=== PATIENT | male | born 1985 | race American Indian/Alaskan Native ===

== ENCOUNTER 2017-04-07 15:50 | Emergency (ER) | payer SELFPAY ==
[2017-04-07 16:01] VITALS: BP 131/54
--- NOTE | 2017-04-07 17:25 | Emergency Department Report ---
Chief Complaint: Abdominal Pain Stated Complaint: ABD PAIN/BLOODY DIARRHEA - HPI History of Present Illness: 31 yo male with history of HIV unknown CD4 count. Had left lower quadrant pain and bloody mucous-like diarrhea. - Exam Vital Signs: Vital Signs 04/07/17 15:57 Temperature 98.2 F Pulse Rate 69 Respiratory 18 Rate Blood Pressure 131/54 O2 Sat by Pulse 99 Oximetry MSE screening note: Focused history and physical exam performed. Due to findings the following was ordered: ED Disposition for MSE Condition: Stable
[2017-04-07] MEDS ORDERED: NORCO 5/325 PO ONE (17:26)
[2017-04-07] MEDS ORDERED: ZOFRAN ODT PO ONE (17:26)
[2017-04-07 18:25] LABS: Basophils % (Auto) 0.2 % (0.0-1.8); Hematocrit 45.1 % (35.5-45.6); Hemoglobin 14.8 gm/dl (11.8-15.2); Lymphocytes # (Auto) 1.2 K/mm3 (1.2-5.4); Lymphocytes % (Auto) 17.6 % (13.4-35.0); Mean Corpuscular HGB Conc 33 % (32-34); Mean Corpuscular Hemoglobin 27 pg (28-32); Mean Corpuscular Volume 83 fl (84-94); Monocytes # (Auto) 0.6 K/mm3 (0.0-0.8); Monocytes % (Auto) 9.7 % (0.0-7.3); Platelet Count 213 K/mm3 (140-440); Red Blood Count 5.47 M/mm3 (3.65-5.03); Red Cell Distribution Width 14.5 % (13.2-15.2)
[2017-04-07 18:36] LABS: BUN/Creatinine Ratio 17; Blood Urea Nitrogen 15 mg/dL (9-20); Calcium 9.1 mg/dL (8.4-10.2); Hemolysis Index 5
--- NOTE | 2017-04-07 20:15 | Cat Scan Report ---
FINAL REPORT PROCEDURE: CT abdomen and pelvis without contrast. TECHNIQUE: Computerized axial tomography of the abdomen and pelvis was performed without intravenous contrast. This study is performed without intravascular contrast material and its sensitivity for abdominal and pelvic pathology, including neoplasms, inflammation, abscess, free fluid, thrombosis, arterial dissection and infarction, is reduced compared with a contrast enhanced study. HISTORY: left lower quadrant pain and bloody stool COMPARISON: No prior studies are available for comparison. FINDINGS: The lung bases are clear. There are no pleural effusions. The heart size is normal. The liver, pancreas and spleen are grossly normal. The gallbladder is present. The adrenal glands are not enlarged. Both kidneys appear normal in size and configuration. There is slightly increased attenuation involving several of the renal pyramids bilaterally. This suggests possible nephrocalcinosis. There is no hydronephrosis. The abdominal aorta has a normal caliber. There is no definite retroperitoneal adenopathy. The unopacified gastrointestinal tract is unremarkable. I believe there is a normal appendix present. The bladder is empty. The seminal vesicles and prostate are unremarkable. The regional skeleton appears intact. IMPRESSION: Nephrocalcinosis. Otherwise normal unenhanced studies of the abdomen and pelvis.
--- NOTE | 2017-04-07 20:57 | Emergency Department Report ---
ED Abdominal Pain HPI - General Chief Complaint: Abdominal Pain Stated Complaint: ABD PAIN/BLOODY DIARRHEA Time Seen by Provider: 04/07/17 20:40 Source: patient Mode of arrival: Ambulatory Limitations: No Limitations - History of Present Illness Initial Comments: This is a 31-year-old male nontoxic, well nourished in appearance, no acute signs of distress presents to the ED with c/o of left sided lower abdominal pain and bloody-mucus diarrhea x2 days. Patient describes pain as cramping with level of 8/10. Patient stated symptoms of abdominal cramping resolved after medical treatment in the Ed prior to my interview. Patient denies any nausea, vomiting, dysuria, polyuria, hematuria, chest pain, shortness of breathe, fever , chills, headache, stiff neck, numbness, tingling, back pain. Patient denies any allergies. PMH includes HIV. Patient denies knowing CD4 count and stated has not followed up with a primary care doctor. MD Complaint: abdominal pain -: days(s) (2) Location: [facility] Radiation: none Migration to: no migration Severity: mild Severity scale (0 -10): 8 Quality: cramping Consistency: now resolved Improves With: nothing Worsens With: nothing Associated Symptoms: denies other symptoms, diarrhea. denies: nausea, vomiting , fever, chills, constipation, dysuria, hematemesis, hematochezia, melena, hematuria, anorexia, syncope - Related Data Previous Rx's Medication Instructions Recorded Last Taken Type Ciprofloxacin HCl [Ciprofloxacin 500 mg PO Q12HR #20 tab 11/26/14 Unknown Rx TAB] Diclofenac Dr [Ana Munroe] 75 mg PO Q12H #14 tablet 11/26/14 Unknown Rx HYDROcodone/APAP 5-325 [[place] 1 each PO Q6HR PRN #12 tablet 11/26/14 Unknown Rx 5/325] Ciprofloxacin [Ciprofloxacin ORAL 500 mg PO Q12H #14 ml 04/07/17 Unknown Rx LIQ] metroNIDAZOLE [Flagyl] 500 mg PO Q12HR #14 tab 04/07/17 Unknown Rx Allergies Allergy/AdvReac Type Severity Reaction Status Date / Time No Known Allergies Allergy Verified 11/26/14 00:44 ED Review of Systems ROS: Stated complaint: ABD PAIN/BLOODY DIARRHEA Other details as noted in HPI Constitutional: denies: chills, fever Eyes: denies: eye pain, eye discharge, vision change ENT: denies: ear pain, throat pain Respiratory: denies: cough, shortness of breath, wheezing Cardiovascular: denies: chest pain, palpitations Endocrine: no symptoms reported Gastrointestinal: abdominal pain, diarrhea. denies: nausea Genitourinary: denies: urgency, dysuria Musculoskeletal: denies: back pain, joint swelling, arthralgia Skin: denies: rash, lesions Neurological: denies: headache, weakness, paresthesias Psychiatric: denies: anxiety, depression Hematological/Lymphatic: denies: easy bleeding, easy bruising ED Past Medical Hx - Past Medical History Previous Medical History?: Yes Hx HIV: Yes (no antivirals) - Surgical History Past Surgical History?: No - Social History Smoking Status: Current Some Day Smoker Substance Use Type: Marijuana - Medications Home Medications: Home Medications Medication Instructions Recorded Confirmed Last Taken Type Ciprofloxacin HCl [Ciprofloxacin 500 mg PO Q12HR #20 tab 11/26/14 Unknown Rx TAB] Diclofenac Dr [Voltaren Dr] 75 mg PO Q12H #14 tablet 11/26/14 Unknown Rx HYDROcodone/APAP 5-325 [[place] 1 each PO Q6HR PRN #12 tablet 11/26/14 Unknown Rx 5/325] Ciprofloxacin [Ciprofloxacin ORAL 500 mg PO Q12H #14 ml 04/07/17 Unknown Rx LIQ] metroNIDAZOLE [Flagyl] 500 mg PO Q12HR #14 tab 04/07/17 Unknown Rx ED Physical Exam - General Limitations: No Limitations General appearance: alert, in no apparent distress - Head Head exam: Present: atraumatic, normocephalic, normal inspection - Eye Eye exam: Present: normal appearance, PERRL, EOMI. Absent: scleral icterus, conjunctival injection, nystagmus, periorbital swelling, periorbital tenderness Pupils: Present: normal accommodation - ENT ENT exam: Present: normal exam, normal orophraynx, mucous membranes moist, TM's normal bilaterally, normal external ear exam - Neck Neck exam: Present: normal inspection, full ROM. Absent: tenderness, meningismus, lymphadenopathy, thyromegaly - Respiratory Respiratory exam: Present: normal lung sounds bilaterally. Absent: respiratory distress, wheezes, rales, rhonchi, stridor, chest wall tenderness, accessory muscle use, decreased breath sounds, prolonged expiratory - Cardiovascular Cardiovascular Exam: Present: regular rate, normal rhythm, normal heart sounds. Absent: bradycardia, tachycardia, irregular rhythm, systolic murmur, diastolic murmur, rubs, gallop - GI/Abdominal GI/Abdominal exam: Present: soft, normal bowel sounds. Absent: distended, tenderness, guarding, rebound, rigid, diminished bowel sounds - Expanded GI/Abdominal Exam Expanded GI/Abdominal exam: Absent: psoas sign, obturator sign, heel tap sign, Villatoro's sign, Rovsing's sign, tenderness at Mcburney's Point, ascites - Rectal Rectal exam: Present: deferred, normal inspection, normal rectal tone, heme (+) stool, normal prostate. Absent: decreased rectal tone, heme (-) stool, fecal impaction, hemorrhoids, mass, tenderness, prostate tenderness, prostate enlargement - exam: Present: normal inspection - Extremities Exam Extremities exam: Present: normal inspection, full ROM, normal capillary refill. Absent: tenderness, pedal edema, joint swelling, calf tenderness - Back Exam Back exam: Present: normal inspection, full ROM. Absent: tenderness, CVA tenderness (R), CVA tenderness (L), muscle spasm, paraspinal tenderness, vertebral tenderness, rash noted - Neurological Exam Neurological exam: Present: alert, oriented X3, CN II-XII intact, normal gait, reflexes normal - Psychiatric Psychiatric exam: Present: normal affect, normal mood - Skin Skin exam: Present: warm, dry, intact, normal color. Absent: rash ED Course Vital Signs 04/07/17 15:57 Temperature 98.2 F Pulse Rate 69 Respiratory 18 Rate Blood Pressure 131/54 O2 Sat by Pulse 99 Oximetry - Reevaluation(s) Reevaluation #1: 04/07/17 21:00 Patient is speaking in full sentences with no signs of distress noted. - Consultations Consultation #1: 04/07/17 21:00 Patient was seen, examined, and screened by Dr. Bassem V. Consultation #2: 04/07/17 21:01 Dr. Ontiveros was consulted about patient history, physcial exam, and labs/imaging findings and agrees to the discharge plan of care with GI follow-up. ED Medical Decision Making - Lab Data Result diagrams: 04/07/17 17:35 04/07/17 17:35 - Medical Decision Making This is a 31-year-old male that presents with abdominal pain. Patient is stable and was examined by me and Dr. Bassem V. CBC, BMP obtained within normal labs. Vital signs stable. CT of abdomen obtained and dictated by radiologist within normal limits. Patient was discussed with Dr. Ontiveros and agrees to giving patient Flagyl and cipro at discharge. Positive heme occult blood on exam. Patient was referred to the GI specialist. Patient was instructed to return to the ED if symptoms worsen. At time of discharge, the patient does not seem toxic or ill in appearance. No acute signs of distress noted. Patient agrees to discharge treatment plan of care. No further questions noted by the patient. Critical care attestation.: If time is entered above; I have spent that time in minutes in the direct care of this critically ill patient, excluding procedure time. ED Disposition Clinical Impression: Abdominal pain Qualifiers: Abdominal location: left lower quadrant Qualified Code(s): R10.32 - Left lower quadrant pain Disposition: DC- TO HOME OR SELFCARE Is pt being admited?: No Does the pt Need Aspirin: No Condition: Stable Instructions: Ciprofloxacin (By mouth), Metronidazole (By mouth), Acute Abdominal Pain (ED) Additional Instructions: Follow-up with a vice president payer doctor in 24 hours or if symptoms worsen and continue return to emergency room as soon as possible. Prescriptions: Ciprofloxacin [Ciprofloxacin ORAL LIQ] 500 mg PO Q12H #14 ml metroNIDAZOLE [Flagyl] 500 mg PO Q12HR #14 tab Referrals: TAMMI GRIFFITHS MD [Staff Physician] - 3-5 Days [facility] [Outside] - 3-5 Days [facility] [Outside] - 3-5 Days PRIMARY MD SANDRO [Primary Care Provider] - 24 Hours DANIEL NDIAYE MD [Staff Physician] - 24 Hours [facility] [Provider Group] - 24 Hours Forms: Work/School Release Form(ED)
== END 2017-04-07 21:37 | disposition home or self-care (01) ==
LOC: ED 15:50
DX: R10.32 Left lower quadrant pain (principal); F17.200 Nicotine dependence, unspecified, uncomplicated; F12.10 Cannabis abuse, uncomplicated
CPT/HCPCS: 36415; 74176; 80048; 85025; Q0162

== ENCOUNTER 2017-06-14 05:11 | Emergency (ER) | payer SELFPAY ==
[2017-06-14 05:38] VITALS: BP 130/75
== END 2017-06-14 08:53 | disposition left against medical advice (07) ==
LOC: ED 05:11
DX: R21 Rash and other nonspecific skin eruption (principal); Z53.21 Procedure and treatment not carried out due to patient leaving prior to being seen by health care provider

== ENCOUNTER 2017-11-27 13:42 | Emergency (ER) | payer SELFPAY ==
[2017-11-27 14:04] VITALS: BP 115/71
[2017-11-27] MEDS ORDERED: BACTRIM DS PO ONE (16:48)
--- NOTE | 2017-11-27 17:06 | Emergency Department Report ---
Abscess Boil HPI - HPI Chief Complaint: Skin/Abscess/Foreign Body Stated Complaint: RIGHT LEG PAIN/FEVER Time Seen by Provider: 11/27/17 16:42 Duration: 5 Days Location: Lower Extremity History: Yes Fever, Yes Purulent Drainage, Yes Insect Bite, No Pain, No Numbness , No Foreign Body, No Previous History Home Medications: Previous Rx's Medication Instructions Recorded Last Taken Type Sulfamethoxazole/Trimethoprim 1 each PO BID #14 tablet 11/27/17 Unknown Rx [Bactrim DS TAB] Allergies/Adverse Reactions: Allergies Allergy/AdvReac Type Severity Reaction Status Date / Time No Known Allergies Allergy Verified 11/26/14 00:44 ED Review of Systems ROS: Stated complaint: RIGHT LEG PAIN/FEVER Other details as noted in HPI Comment: Unobtainable due to pts medical conditions Constitutional: denies: chills, fever Eyes: denies: eye pain ENT: denies: ear pain, throat pain Respiratory: denies: see HPI, cough, orthopnea Cardiovascular: denies: chest pain, palpitations Endocrine: denies: flushing, intolerance to cold Gastrointestinal: denies: abdominal pain, nausea, vomiting Genitourinary: denies: urgency, dysuria Musculoskeletal: denies: back pain Skin: lesions (INSECT BITE NOW OPEN BOIL BEHIND R KNEE). denies: rash Neurological: denies: headache, weakness Psychiatric: denies: anxiety, depression Hematological/Lymphatic: denies: easy bleeding ED Past Medical Hx - Past Medical History Previous Medical History?: Yes Hx HIV: Yes (no antivirals) - Surgical History Past Surgical History?: No - Social History Smoking Status: Current Some Day Smoker Substance Use Type: Marijuana - Medications Home Medications: Home Medications Medication Instructions Recorded Confirmed Last Taken Type Sulfamethoxazole/Trimethoprim 1 each PO BID #14 tablet 11/27/17 Unknown Rx [Bactrim DS TAB] ED Abscess Boil Physical Exam - Exam General: Vital signs noted. No distress. Alert and acting appropriately. Size: 1 cm Exam: Yes Tenderness, Yes Normal Neurologic Exam, Yes Normal Circulation, No Fluctuance, No Surrounding Cellulites/Erythema, No Lymphangitis, No Crepitation , No Heart Murmur I & D Note - I & D Note I & D Note: NO I/D BOIL OPEN AND DRAINING. SIZE OF A DANIE ED Course Vital Signs 11/27/17 13:59 Temperature 99.6 F Pulse Rate 98 H Respiratory 18 Rate Blood Pressure 115/71 O2 Sat by Pulse 98 Oximetry - Reevaluation(s) Reevaluation #1: 11/27/17 17:08 TO ER W WOUND BEHIND R KNEE STARTED MOSQUITO BITE THEN TURNED TO BOIL OPENED ON WED ON ITS OWN DRAINING SEROSANG DRAINAGE RED AROUND THE WOUND LOW GRADE FEVER NON TOXIC AMBULATORY TAKING PO HX HIV NOT ON MEDS DUE TO ACCESS ISSUES GIVEN REFERRAL TO [facility]. EDUCATED ON IMPORTANCE OF TREATMENT 11/27/17 17:09 Critical care attestation.: If time is entered above; I have spent that time in minutes in the direct care of this critically ill patient, excluding procedure time. ED Medical Decision Making - Differential Diagnosis INSECT BITE- BOIL- OPEN ED Disposition Clinical Impression: Abscess, HIV disease Disposition: DC- TO HOME OR SELFCARE Is pt being admited?: No Does the pt Need Aspirin: No Condition: Stable Instructions: Human Immunodeficiency Virus Transmission (ED), Abscess (ED) Additional Instructions: CLEAN WOUND TWICE PER DAY WITH SOAP AND WATER SOAK WOUND IN 1/2 NS AND 1/2 BETADINE THREE TIMES PER DAY FOR 20 MINUTES WHEN WOUND IS CLEANED COVER WITH GUAZE AND KEEP COVERED UNTIL NO LONGER DRAINING ANTIBIOTICS UNTIL GONE HYDRATE WELL WITH WATER EAT BALANCED DIET. INCREASE PROTEIN WHILE THIS HEALS MOTRIN OR TYLENOL FOR PAIN OR FEVER FOLLOW UP AT THE [facility] ON [address] [place] TAKE THIS PAPERWORK AND ANY MEDICAL RECORDS YOU MAY HAVE RELATED TO YOUR HIV WITH YOU. [email or web address] Referrals: [facility] [Outside] - 3-5 Days Time of Disposition: 17:04
[2017-11-27] MEDS ORDERED: MOTRIN PO ONE (17:09)
== END 2017-11-27 17:32 | disposition home or self-care (01) ==
LOC: ED 13:42
DX: L02.415 Cutaneous abscess of right lower limb (principal); R50.9 Fever, unspecified; B20 Human immunodeficiency virus [HIV] disease; F17.200 Nicotine dependence, unspecified, uncomplicated; F12.10 Cannabis abuse, uncomplicated
CPT/HCPCS: 99283